=== PATIENT | female | born 1935 | race Caucasian/White ===

== ENCOUNTER 2016-09-20 00:42 | Day surgery (SDC) | payer MEDICARE, OTHER ==
[~2016-09-20] VITALS: Ht 167.6 cm; Wt 75.0 kg
[2016-09-20] VITALS (20 sets, daily range): BP systolic 126–165; BP diastolic 42–97; PULSE 60–88; RESP 10–21; O2SAT 96–100
[~2016-09-20 00:42] MED LIST: ACET-2605 PO; BENA20TA PO; CARV6.252 PO; CEPH250C PO; CHOL200025 PO; CLOP75TA3 PO; DONE10TA42 PO; ESOM20CA28 PO; FERR325C PO; FUR20 PO; INSU100I25 SQ; INSU100V4 SUBQ; INSU200I SQ; KEN25CR EXT; LIP40 PO; SPIR25TA3 PO; WARF5TAB7 PO
[2016-09-20] MEDS ORDERED: fentaNYL-PF 50 mCg/mL 2 mL Inj ONE (00:43)
[2016-09-20] MEDS ORDERED: Succinylcholine Chloride 20 mg/mL 5 mL Inj ONE (00:43)
[2016-09-20] MEDS ORDERED: Propofol 10,000 mCg/mL 20 mL Inj ONE (00:43)
[2016-09-20] MEDS ORDERED: Lactated Ringer's 1,000 ML IV ONE (05:00)
[2016-09-20] MEDS ORDERED: 0.9% Sodium Chloride 1,000 ML ONE (07:44)
[2016-09-20 08:17] LABS: BASOPHILS % (AUTO) 0.4 % (0-3); EOSINOPHILS % (AUTO) 2.9 % (0-5); MONOCYTES % (AUTO) 11.2 % (4-12); Mean Corpuscular Volume 90.3 fL (81-100); NEUTROPHILS % (AUTO) 62.2 % (40-74); Platelet Count 203 bil/L (150-400)
[2016-09-20 08:40] LABS: INR 1.05 ratio
[2016-09-20] MEDS ORDERED: WARF5TAB7 PO (09:09)
--- NOTE | 2016-09-20 09:47 | NUR ---
Admitted through [facility] for an angiogram for ongoing Left great toe pain and difficulty walking more than 500 Ft. Patient has been on Keflex 250mg PO TID and states that the, "leg and toe looks much improved". Serum K+ with this AM lab draw is 5.5 - Dr Mari notified no new orders at this time.
[2016-09-20] MEDS ORDERED: Heparin 1,000 Unit/mL 10 mL Inj ONE (09:55)
[2016-09-20] MEDS ORDERED: Heparin 5,000 Units/500 mL NS Premix IV ONE (09:56)
[2016-09-20] MEDS ORDERED: 0.9% Sodium Chloride 1,000 ML IV SCH (10:05)
[2016-09-20] MEDS ORDERED: Sodium Bicarb 8.4% Inj 150 MEQ in Dextrose 5% 1,000 ML IV ONE (10:10)
--- NOTE | 2016-09-20 10:18 | PCM.HPANE ---
Patient Data Date of Service: Sep 20, 2016 Surgeon Admitting Provider: Attending Provider:Everardo Ojeda MD Primary Care Physician:Summer Cavanaugh MD Other Provider:Smita Metzger Anesthesia Reason for Visit PVD Ht/WT & BMI Height (Feet): 5 Height (Inches): 6.00 Weight (Kilograms): 75.000 Body Mass Index 26.57 Allergies Coded Allergies: Sulfa (Sulfonamide Antibiotics) (Verified Allergy, Severe, 09/20/16) codeine (Verified Allergy, Intermediate, 09/20/16) metformin (Verified Allergy, Intermediate, rash, 09/20/16) Past Anesthesia History Anesthesia History: Denies:: Anesthesia Reactions Diabetes History Hx Diabetes?: Yes MRSA MRSA: No Medications Reported Medications Warfarin Sodium 5 Mg Tablet5 Mg PO DAILY 30 Days Ref 0 09/20/16 Insulin Lispro (Humalog Kwikpen)200 Unit/Ml (3 Ml) Insuln.penUnknown Dose SQ 09/17/16 Cephalexin 250 Mg Tudoegw752 Mg PO TID #30 CAPSULE Ref 0 09/17/16 Benazepril 20 Mg Futltg03 Mg PO DAILY 04/05/16 Cholecalciferol (Vitamin D3) (Vitamin D3)2,000 Unit Tablet4,000 Unit PO DAILY 04/02/16 Ferrous Sulfate (Iron)325 Mg Capsule.er325 Mg PO DAILY 04/02/16 Triamcinolone Acet (Triamcinolone Acetonide Cream)1 Applic/0.25 Gm Cr1 Applic EXT BID PRN For Itching #60 GM Ref 0 12/31/15 Esomeprazole Magnesium (Nexium)20 Mg Capsule.dr20 Mg PO DAILY Ref 0 12/31/15 Clopidogrel Bisulfate (Plavix)75 Mg Ttpcps79 Mg PO DAILY 30 Days Ref 0 12/31/15 Acetaminophen/Diphenhydramine (Tylenol Pm Ex-Strength Caplet)500 Mg-25 Mg Tablet1 Each PO HS PRN For Sleep 12/31/15 Atorvastatin (Lipitor)40 Mg Pfoyzo02 Mg PO DAILY Ref 0 12/31/15 Furosemide 20 Mg Tab20 Mg PO DAILY 30 Days Ref 0 07/03/15 Insulin Detemir (Levemir Flextouch)100 Unit/1 Ml Insuln.pen6 Unit SQ QPM 07/03/15 Spironolactone 25 Mg Fuohbq16 Mg PO DAILY #30 TABLET Ref 0 07/02/15 Insulin Detemir (Levemir U100 Insulin Vial)100 Unit/1 Ml Vial25 SUBQ QAM #1 VIAL Ref 0 07/02/15 Carvedilol 6.25 Mg Tablet6.25 Mg PO BID Ref 0 07/02/15 Discontinued Reported Medications Donepezil 10 Mg Bwntxu65 Mg PO HS Ref 0 09/17/16 Warfarin Sodium 5 Mg Tablet2.5 Mg PO M,W 30 Days Ref 0 04/05/16 Warfarin Sodium 5 Mg Tablet5 Mg PO DAVIS,TU,TH,F,SA 30 Days Ref 0 07/03/15 History History of ENT Problems?: No HEENT History: Positive for:: Cataracts (left eye cataract surgery) Dysphagia (A little) Denies:: Sinus Problem Denture Type: Full- Upper Full- Lower Hx of Heart Problems?: Yes Cardiovascular History: Positive for:: Cardiac Surgery (Pacemaker -for 3 degree HB - Coronary stent - angioplasty Lower leg) Congestive Heart Failure Edema (foot and lower legs - improved since starting antibiotics) Hypertension Irregular Heartbeat (AF) Pacemaker Peripheral Vascular Denies:: Chest Pain (remote HX bronchitis) Heart Murmur Hx of Respiratory Problem?: Yes Respiratory History: Positive for:: Pneumonia (remote HX has had Pneumonia vaccine) Denies:: Asthma COPD Chest Surgery (pacemaker) Dyspnea Emphysema Hemoptysis Tuberculosis Hx Neurologic Problems?: No Neurological History: Positive for:: Dizziness (Dehydration) Denies:: CVA Dementia Headaches Parkinson's Disease Seizures Hx of GI Problems?: Yes Gastrointestinal History: Positive for:: Gastrointestinal Bleeding (Remote history of ulcer with blood loss warrenting transfusions) Heartburn Denies:: Diverticulitis Gastroesphageal Reflux Hepatitis Hiatal Hernia Hx of Problems?: Yes Genitourinary History: Positive for:: Urinary Tract Infection (occasional) Female Hx: Denies:: Currently Hx Musculoskeletal Problems?: Yes Musculoskeletal History: Denies:: Back Injury Joint Replacement Hx of Psycho/Social Problems?: No Hx Surgeries?: Yes ([place] 35 years ago) Hx Any Other Health Problems?: Yes Other History: Positive for:: Hospitalization Denies:: Cancer Endocrine Disease Thyroid Disease History Blood Transfusions: Positive for:: Accept Blood Products? Blood Transfusions Denies:: Blood Transfuse Reaction Hx Diabetes: Yes Hx Alcohol Use: NoHx Substance Use: No Smoking Status: Never Smoker Have You Smoked inLast 12 mo: No Stop/Bang Treated for Sleep Apnea?: No Do You Have a CPAP Machine?: No GUSTAVO Risk Assessment: Low Risk, <3 Yes Risk Assessment Category Category 1A: Patient has history of documented sleep apnea, and HAS NOT received any narcotic, sedative or anesthesia administration during this stay. Category 1B: Patient has history of documented sleep apnea, and HAS received any narcotic , sedative or anesthesia administration during this stay Category 2: Patient has SUSPECTED Obstructive Sleep Apnea, and HAS received any narcotic , sedative or anesthesia administration during this stay. Category 3: Patient has SUSPECTED Obstructive Sleep Apnea and HAS NOT received narcotic, sedative or anesthesia administration during this stay. Category 4: Outpatient in Procedural Areas with known sleep apnea or who screen positive for High Risk via the STOP/BANG questionnaire. Exam Exam Vital Signs Vital Signs Date Time Temp Pulse Resp B/P Pulse Ox O2 Delivery O2 Flow Rate FiO2 09/20/16 08:38 36.6 88 18 165/60 98 Room Air 09/20/16 08:38 88 18 165/60 General Appearance: Alert, Oriented X3, Cooperative HEENT/AIRWAY: MP 2 Lungs: Clear to Auscultation, Diminished Heart: Normal S1, Normal S2 Meds/Labs/Diagnostics Labs Test 09/20/16 08:11 White Blood Count 7.2th/mm3 (3.8-10.1) Red Blood Count 3.83mil/mm3 (3.90-5.20) Hemoglobin 11.1g/dL (12.0-15.6) Hematocrit 34.6% (35.0-46.0) Mean Corpuscular Volume 90.3fL (81-100) Mean Corpuscular Hemoglobin 29.0pg (27.0-35.0) Mean Corpuscular Hemoglobin Concent 32.1% (32.0-37.0) Red Cell Distribution Width 14.0% (12.3-15.4) Platelet Count 203bil/L (150-400) Neutrophils (%) (Auto) 62.2% (40-74) Lymphocytes (%) (Auto) 22.9% (14-46) Monocytes (%) (Auto) 11.2% (4-12) Eosinophils (%) (Auto) 2.9% (0-5) Basophils (%) (Auto) 0.4% (0-3) Prothrombin Time 11.3sec (8.1-12.5) Prothromb Time International Ratio 1.05ratio Sodium Level 136mEq/L (134-144) Potassium Level 5.5mEq/L (3.5-5.2) Chloride Level 100mEq/L (97-108) Carbon Dioxide Level 22mmol/L (18-29) Blood Urea Nitrogen 43mg/dL (8-27) Creatinine 1.79mg/dL (0.57-1.00) Estimat Glomerular Filtration Rate 39mL/min (>59) Glucose Level 241mg/dL (60-99) Calcium Level 8.8mg/dL (8.5-10.1) Plan Impression Patient chart reviewed, patient interviewed and anesthestic plan with risks, benefits, and alternatives discussed, and informed consent obtained. ASA Physical Status: ASA3 Severe Disease Anesthetic Plan: MAC Bene/Risks/Altern/Consents: Yes HP Complete Prior to Induction: Yes Yan Coreas DO Sep 20, 2016 10:18
[2016-09-20] MEDS ORDERED: Nitroglycerin 50,000 mcg/250 mL D5W Premix IV ONE (10:26)
--- NOTE | 2016-09-20 12:24 | PCM.ANEP1 ---
Post Anesthesia Phase 1 PACU Phase 1 Assessment Date of Service: Sep 20, 2016 Vital Signs Vital Signs Date Time Temp Pulse Resp B/P Pulse Ox O2 Delivery O2 Flow Rate FiO2 09/20/16 08:38 36.6 88 18 165/60 98 Room Air 09/20/16 08:38 88 18 165/60 Anesthetic Administered: GA Level of Alertness: Awake, talking BECKER's with Equal Strength: Yes Pain: No Nausea or Vomiting: No Oxygen Delivery: Simple Mask Lungs: Clear to Auscultation, Diminished Dermatome Level: Full Sensation Yan Coreas DO Sep 20, 2016 12:24
--- NOTE | 2016-09-20 18:27 | PCM.ANEP2 ---
Post Anesthesia Evaluation ASA/CMS Post Anesthesia Date of Service: Sep 20, 2016 VS in Patient's Normal Range?: Yes Resp Stable; Airway Patent?: Yes CV Function & Hydration Stable: Yes Mental Status Recovered?: Yes Pain control Satisfactory?: Yes N/V Control Satisfactory?: Yes Yan Coreas DO Sep 20, 2016 18:27
--- NOTE | 2016-09-20 19:01 | NUR ---
KATHRYN DISCHARGE ASSUMED CARE OF PT AT 1715. RIGHT GROIN HAS REMAINED SOFT, NON TENDER, NO BLEEDING OR HEMATOMA NOTED. RIGHT DP/PT PER DOPPLER. PT COMPLETED BEDREST AND THEN AMBULATED TO BR AND IN THE [facility]. RIGHT GROIN REMAINED STABLE. DISCHARGE INSTRUCTIONS INCLUDING MEDICATIONS, F/U, AND LABS WERE REVIEWED WITH PT AND DAUGHTER AND THEY VERBALIZED UNDERSTANDING. PT WAS DISCHARGED AT 1900 WITH DAUGHTER IN STABLE CONDITION.
--- NOTE | 2016-09-20 19:28 | DI96 ---
[address] [address] PERIPHERAL CATHETERIZATION/INTERVENTION REPORT PATIENT: ANA KLEIN : 1935 MR#: [id number] ADMIT: 09/20/2016 JOB ID: [id number] CORRECTED REPORT DATE OF PROCEDURE: 09/20/2016 PATIENT PROFILE: The patient is an 80-year-old lady with history of chronic atrial fibrillation, on chronic anticoagulation. She has had dual-chamber pacemaker implantation in 2012. She has cardiomyopathy with ejection fraction of 30% to 35%. Her risk factor includes uncontrolled diabetes, hypertension, and hyperlipidemia. She has chronic kidney disease, stage 3-4. The patient presented with cellulitis of her left foot. PROCEDURE: 1. Vascular access from the right groin. 2. Pelvic angiogram. 3. Selective contralateral left common femoral angiogram with runoff. 4. Vascular closure device: None. COMPLICATIONS: None. METHOD: The patient was under IV sedation provided by Dr. Seay, an anesthesiologist. Vascular access was obtained from the right groin under 1% lidocaine local anesthesia using a 5-Malaysian sheath. A 4-Malaysian pigtail catheter was advanced to the lower abdominal aorta and pelvic angiogram was performed in the AP view by injecting CO2 at 20 cc. However, the image was suboptimal. A repeat angiogram was performed by injecting contrast at the rate of 12 cc/second for 1.5 seconds. A 5-Malaysian rim catheter was then placed in the abdominal aorta and used to get over the horn. It was then exchanged to a 4-Malaysian slip catheter. The tip of the catheter was placed in the left common femoral artery. Selective contralateral left common femoral angiogram with runoff was performed in the AP view by injecting contrast at the rate of 4 cc/second for 9 seconds. This catheter was withdrawn. Following sheath removal, hemostasis was achieved by manual compression. The patient tolerated the procedure well. She was transferred to [facility] in good condition. TOTAL CONTRAST USED: 50 cc. Total carbon dioxide use is 20 cc. Fluoro time is 2.2 minutes. Total radiation dose is 188 milligray. RESULTS: 1. The abdominal aorta has minor irregularity. 2. The right common iliac artery has minor irregularity of 10% to 20% stenosis. The left common iliac artery has eccentric 40% stenosis in the mid portion. 3. Bilateral external iliac arteries have minimal disease. Bilateral internal iliac arteries have minor disease. 4. The left common femoral artery has eccentric 30% to 40% stenosis in the distal portion. 5. The left superficial femoral artery has diffuse disease of 20% to 30% stenosis before it becomes totally occluded in the distal portion. There are faint collaterals filling into the above knee popliteal. This above knee popliteal has critical 99% stenosis. The left profunda artery has diffuse minor disease. 6. The left tibioperoneal trunk has diffuse moderate disease. The left anterior tibial artery has 90% stenosis at its origin and 99% stenosis in the mid portion. The left peroneal artery is occluded proximally. The left posterior tibial artery has diffuse minor disease. CONCLUSION: 1. Occluded distal left superficial femoral artery. 2. Critical 99% stenosis of the left above-knee popliteal artery. 3. Critical 99% stenosis of the left anterior tibial artery and occluded left peroneal artery. Corrected by LORENA 11/18/2016 at 8:16am DOS. MAX
== END 2016-09-20 23:59 | disposition home or self-care (01) ==
LOC: SOUO 00:42
PROVIDERS: ATTEND Internal Medicine Interventional Cardiology
DX: I70.202 Unspecified atherosclerosis of native arteries of extremities, left leg (principal); I70.92 Chronic total occlusion of artery of the extremities; I70.8 Atherosclerosis of other arteries; L03.116 Cellulitis of left lower limb; E11.65 Type 2 diabetes mellitus with hyperglycemia; E11.22 Type 2 diabetes mellitus with diabetic chronic kidney disease; I48.2 Chronic atrial fibrillation; I12.9 Hypertensive chronic kidney disease with stage 1 through stage 4 chronic kidney disease, or unspecified chronic kidney disease; N18.4 Chronic kidney disease, stage 4 (severe); I25.10 Atherosclerotic heart disease of native coronary artery without angina pectoris; Z95.5 Presence of coronary angioplasty implant and graft; I42.9 Cardiomyopathy, unspecified; I34.0 Nonrheumatic mitral (valve) insufficiency; E78.5 Hyperlipidemia, unspecified; Z79.4 Long term (current) use of insulin; Z79.01 Long term (current) use of anticoagulants; Z95.0 Presence of cardiac pacemaker
CPT/HCPCS: 36246; 36415; 75710; 75774; 80048; 85025; 85610; 93005; C1769; J0330; J1644; J2250; J3010; Q9967

== ENCOUNTER 2016-10-04 00:07 | Day surgery (SDC) | payer MEDICARE, OTHER ==
[~2016-10-04] VITALS: Ht 167.6 cm; Wt 77.0 kg
[2016-10-04] VITALS (17 sets, daily range): BP systolic 127–171; BP diastolic 48–72; PULSE 65–86; RESP 12–25; O2SAT 92–100
[~2016-10-04 00:07] MED LIST changes: -DONE10TA42 PO; -KEN25CR EXT
[2016-10-04] MEDS ORDERED: fentaNYL-PF 50 mCg/mL 2 mL Inj ONE (00:08)
[2016-10-04] MEDS ORDERED: Propofol 10,000 mCg/mL 20 mL Inj ONE (00:08)
[2016-10-04] MEDS ORDERED: Ondansetron 2 mg/mL 2 mL Inj ONE (00:08)
[2016-10-04] MEDS ORDERED: Lactated Ringer's 1,000 ML IV ONE (05:00)
[2016-10-04] MEDS ORDERED: Sodium Bicarb 8.4% Inj 150 MEQ in Dextrose 5% 1,000 ML IV ONE ×2 (06:29→07:40)
--- NOTE | 2016-10-04 06:45 | NUR ---
ADMISSION NOTE FEMALE PT ADMITTED FOR PERIPHERAL ANGIOPLASTY. DISCUSSED PLAN OF CARE WITH PT AND FAMILY. SEE ADMIT AND FLOW SHEET
[2016-10-04 07:15] LABS: BASOPHILS % (AUTO) 0.3 % (0-3); EOSINOPHILS % (AUTO) 3.2 % (0-5); MONOCYTES % (AUTO) 11.7 % (4-12); Mean Corpuscular Hemoglobin 28.9 pg (27.0-35.0); Mean Corpuscular Volume 90.7 fL (81-100); NEUTROPHILS % (AUTO) 63.6 % (40-74); Platelet Count 217 bil/L (150-400)
[2016-10-04] MEDS ORDERED: 0.9% Sodium Chloride 1,000 ML ONE ×2 (07:32→08:02)
[2016-10-04] MEDS ORDERED: Heparin 1,000 Unit/mL 10 mL Inj ONE ×3 (08:02→10:33)
--- NOTE | 2016-10-04 08:30 | PCM.HPANE ---
Patient Data Surgeon Admitting Provider: Attending Provider:Everardo Ojeda MD Primary Care Physician:Summer Cavanaugh MD Other Provider:Smita Metzger Anesthesia Reason for Visit Peripheral Vascular Disease, Unspecified Ht/WT & BMI Height (Feet): 5 Height (Inches): 6.00 Weight (Kilograms): 77.000 Body Mass Index 27.28 Allergies Coded Allergies: Sulfa (Sulfonamide Antibiotics) (Verified Allergy, Severe, 10/04/16) codeine (Verified Allergy, Intermediate, 10/04/16) metformin (Verified Allergy, Intermediate, rash, 10/04/16) Past Anesthesia History Anesthesia History: Denies:: Anesthesia Reactions Diabetes History Hx Diabetes?: Yes Current Bedside Blood Glucose: 145 MRSA MRSA: No Medications Reported Medications Warfarin Sodium 5 Mg Tablet5 Mg PO DAILY 30 Days Ref 0 09/20/16 Insulin Lispro (Humalog Kwikpen)200 Unit/Ml (3 Ml) Insuln.penUnknown Dose SQ 09/17/16 Cholecalciferol (Vitamin D3) (Vitamin D3)2,000 Unit Tablet4,000 Unit PO DAILY 04/02/16 Ferrous Sulfate (Iron)325 Mg Capsule.er325 Mg PO DAILY 04/02/16 Esomeprazole Magnesium (Nexium)20 Mg Capsule.dr20 Mg PO DAILY Ref 0 12/31/15 Clopidogrel Bisulfate (Plavix)75 Mg Duzmrt45 Mg PO DAILY 30 Days Ref 0 12/31/15 Acetaminophen/Diphenhydramine (Tylenol Pm Ex-Strength Caplet)500 Mg-25 Mg Tablet1 Each PO HS PRN For Sleep 12/31/15 Atorvastatin (Lipitor)40 Mg Vouali31 Mg PO DAILY Ref 0 12/31/15 Furosemide 20 Mg Tab20 Mg PO DAILY 30 Days Ref 0 07/03/15 Insulin Detemir (Levemir Flextouch)100 Unit/1 Ml Insuln.pen6 Unit SQ QPM 07/03/15 Insulin Detemir (Levemir U100 Insulin Vial)100 Unit/1 Ml Vial15 SUBQ QAM #1 VIAL Ref 0 07/02/15 Carvedilol 6.25 Mg Tablet6.25 Mg PO BID Ref 0 07/02/15 Discontinued Reported Medications Triamcinolone Acet (Triamcinolone Acetonide Cream)1 Applic/0.25 Gm Cr1 Applic EXT BID PRN For Itching #60 GM Ref 0 12/31/15 History History of ENT Problems?: Yes HEENT History: Positive for:: Cataracts (left eye cataract surgery) Dysphagia (A little) Denies:: Glaucoma Sinus Problem Denture Type: Full- Upper Full- Lower Hx of Heart Problems?: Yes Cardiovascular History: Positive for:: Cardiac Surgery (Pacemaker -for 3 degree HB - Coronary stent - angioplasty Lower leg) Congestive Heart Failure Edema (foot and lower legs - improved since starting antibiotics) Hypertension Irregular Heartbeat (AF) Pacemaker Peripheral Vascular Denies:: Chest Pain (remote HX bronchitis) Heart Murmur Other History/Comments History of CAD, with Stent in place; 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, able to walk 100 meters without stopping, ROS currently negative, + left leg ischemia, here today for stenting Hx of Respiratory Problem?: Yes Respiratory History: Positive for:: Pneumonia (remote HX has had Pneumonia vaccine) Denies:: Asthma COPD Chest Surgery (pacemaker) Dyspnea Emphysema Hemoptysis Tuberculosis Hx Neurologic Problems?: No Neurological History: Positive for:: Dizziness (Dehydration) Denies:: CVA Dementia Headaches Parkinson's Disease Seizures Hx of GI Problems?: Yes Gastrointestinal History: Positive for:: Gastrointestinal Bleeding (Remote history of ulcer with blood loss warrenting transfusions) Heartburn Denies:: Diverticulitis Gastroesphageal Reflux Hepatitis Hiatal Hernia Other History/Comment Denies Reflux.. peptic ulcer on coumadin Hx of Problems?: Yes Genitourinary History: Positive for:: Urinary Tract Infection (occasional) Female Hx: Denies:: Currently Hx Musculoskeletal Problems?: Yes Musculoskeletal History: Denies:: Back Injury Joint Replacement Hx of Psycho/Social Problems?: No Hx Surgeries?: Yes ([place] 35 years ago) Hx Any Other Health Problems?: Yes Other History: Positive for:: Hospitalization Denies:: Cancer Endocrine Disease Thyroid Disease History Blood Transfusions: Positive for:: Accept Blood Products? Blood Transfusions Denies:: Blood Transfuse Reaction Hx Diabetes: YesBedside Blood Glucose: 145 Hx Alcohol Use: NoHx Substance Use: No Smoking Status: Never Smoker Have You Smoked inLast 12 mo: No Stop/Bang Treated for Sleep Apnea?: No Do You Have a CPAP Machine?: No Risk Assessment Category Category 1A: Patient has history of documented sleep apnea, and HAS NOT received any narcotic, sedative or anesthesia administration during this stay. Category 1B: Patient has history of documented sleep apnea, and HAS received any narcotic , sedative or anesthesia administration during this stay Category 2: Patient has SUSPECTED Obstructive Sleep Apnea, and HAS received any narcotic , sedative or anesthesia administration during this stay. Category 3: Patient has SUSPECTED Obstructive Sleep Apnea and HAS NOT received narcotic, sedative or anesthesia administration during this stay. Category 4: Outpatient in Procedural Areas with known sleep apnea or who screen positive for High Risk via the STOP/BANG questionnaire. Exam Exam Vital Signs Vital Signs Date Time Temp Pulse Resp B/P Pulse Ox O2 Delivery O2 Flow Rate FiO2 10/04/16 06:45 36.7 84 16 171/72 98 Room Air General Appearance: Alert, Oriented X3, Cooperative HEENT/AIRWAY: MP 2 Lungs: Clear to Auscultation, Clear to Percussion Meds/Labs/Diagnostics Admission Meds Current Medications Sodium Chloride 1,000 ml @ ud STK-MED ONCE .ROUTE Last administered on 08:06; Start 10/04/16 at 07:32; Stop 10/04/16 at 07:33; Status DC Sodium Bicarbonate/ Dextrose/Water (Sodium Bicarb 8.4% Inj/D5W) 1,150 ml @ 0 mls/hr Q0M ONCE IV Last administered on 10/04/16 08:06; Start 10/04/16 at 07: 40; Stop 10/04/16 at 07:41; Status DC Bedside Blood Glucose: 145 Labs Test 10/04/16 07:00 White Blood Count 6.9th/mm3 (3.8-10.1) Red Blood Count 3.98mil/mm3 (3.90-5.20) Hemoglobin 11.5g/dL (12.0-15.6) Hematocrit 36.1% (35.0-46.0) Mean Corpuscular Volume 90.7fL (81-100) Mean Corpuscular Hemoglobin 28.9pg (27.0-35.0) Mean Corpuscular Hemoglobin Concent 31.9% (32.0-37.0) Red Cell Distribution Width 14.1% (12.3-15.4) Platelet Count 217bil/L (150-400) Neutrophils (%) (Auto) 63.6% (40-74) Lymphocytes (%) (Auto) 20.8% (14-46) Monocytes (%) (Auto) 11.7% (4-12) Eosinophils (%) (Auto) 3.2% (0-5) Basophils (%) (Auto) 0.3% (0-3) Sodium Level 140mEq/L (134-144) Potassium Level 4.2mEq/L (3.5-5.2) Chloride Level 100mEq/L (97-108) Carbon Dioxide Level 26mmol/L (18-29) Blood Urea Nitrogen 29mg/dL (8-27) Creatinine 1.42mg/dL (0.57-1.00) Estimat Glomerular Filtration Rate 51mL/min (>59) Glucose Level 153mg/dL (60-99) Calcium Level 8.7mg/dL (8.5-10.1) Plan Impression Patient chart reviewed, patient interviewed and anesthestic plan with risks, benefits, and alternatives discussed, and informed consent obtained. ASA Physical Status: ASA3 Plus Emergency Anesthetic Plan: GA Bene/Risks/Altern/Consents: Yes HP Complete Prior to Induction: Yes Perry Uribe MD Oct 04, 2016 08:29
[2016-10-04] MEDS ORDERED: Protamine Sulfate 10 mg/mL 5 mL Inj ONE (11:23)
--- NOTE | 2016-10-04 11:50 | NUR ---
post procedure note Returned from lab manager. See flow sheet.
[2016-10-04] MEDS ORDERED: Lactated Ringer's 500 ML IV PRN (11:58)
[2016-10-04] MEDS ORDERED: Lactated Ringer's 1,000 ML IV SCH (11:58)
--- NOTE | 2016-10-04 11:59 | PCM.ANEP1 ---
Post Anesthesia Phase 1 PACU Phase 1 Assessment Vital Signs Vital Signs Date Time Temp Pulse Resp B/P Pulse Ox O2 Delivery O2 Flow Rate FiO2 10/04/16 06:45 36.7 84 16 171/72 98 Room Air Anesthetic Administered: GA Level of Alertness: Sleepy, easy to arouse Pain: No Oxygen Delivery: Nasal Cannula Lungs: Clear to Auscultation, Clear to Percussion Dermatome Level: Full Sensation Perry Uribe MD Oct 04, 2016 11:59
[2016-10-04] MEDS ORDERED: EPHEDrine Sulfate 50 mg/mL Inj IVPUSH PRN (12:00)
[2016-10-04] MEDS ORDERED: HYDROmorphone 1 mg/mL Inj IVPUSH PRN (12:00)
[2016-10-04] MEDS ORDERED: Ondansetron 2 mg/mL 2 mL Inj IVPUSH PRN ×3 (12:00→16:00)
[2016-10-04] MEDS ORDERED: fentaNYL-PF 50 mCg/mL 2 mL Inj IVPUSH PRN (12:00)
[2016-10-04] MEDS ORDERED: Phenylephrine 10,000 mCg/mL Inj IVPUSH PRN (12:00)
[2016-10-04] MEDS ORDERED: Dexamethasone 4 mg/mL Inj IVPUSH PRN (12:00)
[2016-10-04] MEDS ORDERED: MetoCLOpramide 5 mg/mL 2 mL Inj IVPUSH PRN (12:00)
[2016-10-04] MEDS ORDERED: Heparin 5,000 Units/500 mL NS Premix IV ONE (12:40)
[2016-10-04] MEDS ORDERED: 0.9% Sodium Chloride 250 ML IV PRN (13:09)
[2016-10-04] MEDS ORDERED: Sodium Bicarb 8.4% Inj 150 MEQ in Dextrose 5% 1,000 ML IV SCH (13:09)
[2016-10-04] MEDS ORDERED: 0.9% Sodium Chloride 1,000 ML IV PRN (13:09)
[2016-10-04] MEDS ORDERED: Atropine 1 mg/10 mL (Code) Syringe IVPUSH PRN ×2 (13:10→16:00)
--- NOTE | 2016-10-04 13:24 | PCM.ANEP2 ---
Post Anesthesia Evaluation ASA/CMS Post Anesthesia VS in Patient's Normal Range?: Yes Resp Stable; Airway Patent?: Yes CV Function & Hydration Stable: Yes Mental Status Recovered?: Yes Pain control Satisfactory?: Yes N/V Control Satisfactory?: Yes Perry Uribe MD Oct 04, 2016 13:24
[2016-10-04] MEDS ORDERED: Insulin Human REGular-Omnicell 100 Unit/mL ONE (14:35)
--- NOTE | 2016-10-04 15:04 | NUR ---
TRANSFER NOTE TO [facility], REPORT GIVEN
[2016-10-04] MEDS ORDERED: Insulin Human REGular-Omnicell 100 Unit/mL SUBQ ONE (15:35)
[2016-10-04] MEDS ORDERED: 0.9% Sodium Chloride 400 ML (4 HRS) IV ONE (16:00)
[2016-10-04] MEDS ORDERED: 0.9% Sodium Chloride 250 ML BOLUS IV PRN (16:00)
[2016-10-04] MEDS ORDERED: Sodium Chloride LOK Flush 10 mL Syringe IVFLUSH PRN (16:00)
[2016-10-04] MEDS ORDERED: D5 IV SCH (16:00)
[2016-10-04] MEDS ORDERED: SODIUM BICARB IV SCH (16:00)
--- NOTE | 2016-10-04 20:02 | DI96 ---
[address] [address] PERIPHERAL CATHETERIZATION/INTERVENTION REPORT PATIENT: ANA KLEIN : 1935 MR#: [id number] ADMIT: 10/04/2016 JOB ID: [id number] DATE: 10/04/2016 PATIENT PROFILE: The patient is an 80-year-old woman with chronic atrial fibrillation. She presented with cellulitis of the left foot last month. She was found to have significant peripheral artery disease. PROCEDURE: 1. Arterial access from the left groin by antegrade approach under ultrasound guidance. 2. Selective ipsilateral left superficial femoral angiogram with runoff. 3. Drug-coated balloon angioplasty to the distal left superficial femoral artery. 4. Drug-coated balloon angioplasty to the left popliteal artery. 5. Balloon angioplasty and stent to the mid left anterior tibial artery. 6. Vascular closure device: StarClose. COMPLICATIONS: None. DESCRIPTION OF PROCEDURE: The patient was under anesthesia provided by Dr.David Uribe, anesthesiologist. Arterial access was obtained from the left groin under 1% lidocaine local anesthesia using micropuncture needle under ultrasound guidance. After the position was confirmed in the left superficial femoral artery, the femoral sheath was exchanged to a 25 cm Brite tip sheath. The tip of the sheath is in the mid left superficial femoral artery. Selective left superficial femoral angiogram with runoff was performed in the AP view. Repeated doses of heparin were given in order to maintain ACT above 250. A Run-through wire was used to cross the subtotal occlusion of the distal left superficial femoral artery and left popliteal artery. Both lesions were predilated with a 2.0 x 60 mm and a 4.0 x 60 mm balloons. The angioplasty wire was then exchanged to an SV 5 wire. An Impact Admiral 4 x 80 mm balloon was then used to dilate in the left popliteal artery. It was inflated up to 8 atmospheres for 3 minutes. Another Impact Admiral 4 x 80 mm balloon was dilated in the distal left superficial femoral artery. It was inflated up to 8 atmospheres for 3 minutes. The angiogram at this point demonstrated a subtotal occlusion of the mid left anterior tibial artery. The Run-through wire was used to cross this lesion. The lesion was predilated with a 2.5 x 20 mm balloon. A Xience 3.0 x 23 mm stent was placed inside the mid left anterior tibial artery lesion and deployed at 10 atmospheres for 30 seconds. Final angiogram was obtained. Left femoral angiogram was performed before sheath removal. Hemostasis was achieved by using a StarClose device. The patient tolerated the procedure well. She was transferred to the [facility] in good condition. TOTAL CONTRAST USED: 100 cc. FLUORO TIME: 11.1 minutes. RESULTS: 1. Successful drug-coated balloon angioplasty to the subtotal occlusion of the distal left superficial femoral artery to achieve a good angiographic result. 2. Successful drug-coated balloon angioplasty to the subtotal occlusion of the left popliteal artery to achieve a good angiographic result. 3. Successful balloon angioplasty and stent placement to the subtotal occlusion of the left anterior tibial artery to achieve an excellent angiographic result. WINTER
[2016-10-04] MEDS: Insulin REGULAR SS Med-Dose SUBQ PRN (20:07)
[2016-10-04] MEDS ORDERED: diphenhydrAMINE 25 mg Capsule PO PRN (20:30)
[2016-10-04] MEDS ORDERED: Insulin GLARgine 100 Unit/mL Syringe SUBQ SCH (21:00)
[2016-10-05 03:09] VITALS: BP 134/42; PULSE 73; RESP 19; O2SAT 96
[2016-10-05 04:06] LABS: Mean Corpuscular Hemoglobin 28.5 pg (27.0-35.0); Mean Corpuscular Volume 91.5 fL (81-100)
[2016-10-05] MEDS ORDERED: Pantoprazole 40 mg ER24 Tablet PO SCH (06:30)
[2016-10-05] MEDS ORDERED: Insulin GLARgine 100 Unit/mL Syringe SUBQ SCH (08:30)
[2016-10-05 08:54] VITALS: BP 132/49; PULSE 88; RESP 16; O2SAT 96
[2016-10-05] MEDS: Insulin REGULAR SS Med-Dose SUBQ PRN (09:13)
[2016-10-05 11:14] VITALS: PULSE 78
[2016-10-05 11:54] VITALS: BP 136/42; PULSE 73; RESP 18; O2SAT 97
--- NOTE | 2016-10-05 12:24 | DIS ---
[address] [address] DISCHARGE SUMMARY PATIENT: ANA KLEIN : 1935 MR#: [id number] ADMIT: 10/04/2016 JOB ID: [id number] DIS: 10/05/2016 CORRECTED REPORT: ADMITTING DIAGNOSIS: Peripheral artery disease with rest pain. DISCHARGE DIAGNOSIS: Peripheral artery disease with rest pain. SECONDARY DIAGNOSES: 1. Recent cellulitis of the left foot. 2. Coronary artery disease. 3. Status post drug-eluting stent placement to the major obtuse marginal branch on July 03, 2015. 4. Ischemic cardiomyopathy with ejection fraction 30% to 35%. 5. Moderate to severe mitral regurgitation. 6. Chronic atrial fibrillation, on chronic anticoagulation. 7. 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 8. Hypertension. 9. Uncontrolled diabetes with long-term use of insulin. 10. Hyperlipidemia with LDL goal less than 70 mg/dL. 11. Chronic kidney disease, improved. PROCEDURE: 1. Drug-coated balloon angioplasty to the distal left superficial femoral artery. 2. Drug-coated balloon angioplasty to the left popliteal artery. 3. Balloon angioplasty and stent to the mid left anterior tibial artery. COMPLICATIONS: None. HISTORY: The patient came to see me last month after having pain in her left foot and cellulitis. She was found to have significant peripheral artery disease. She underwent successful drug-coated balloon angioplasty to the subtotal occlusion of the distal left superficial femoral artery and left popliteal artery, and drug-eluting stent placement to the subtotal occlusion of the mid left anterior tibial artery on October 04, 2016. She was given intravenous bicarb before the procedure. Her baseline creatinine was 1.83 on April 05, 2016, and 1.79 on September 20, 2016. After the procedure her creatinine went down to 1.24 on October 05, 2016. The patient was discharged from the hospital on the following day in good condition. Her discharge medications remain the same with the exception of she should take aspirin 81 mg once daily for one month. Furosemide was discontinued. I will add gabapentin 300mg daily for her intermittent foot pain at rest. Corrected by LORENA 11/11/16 at 8:10am DOS. WINTER
--- NOTE | 2016-10-05 12:52 | NUR ---
Discharge Patient A7O x3. VSS. Denies pain/discomfort. Bilateral pedal pulses not palpable but heard with doppler. Groin site soft non-tender, no redness or signs of bruising. Discharge instructions reviewed with patient and her daughter and copy given to patient. Patient education on warfarin done. Patient ambulated off unit with all personal belongings and transported home via personal vehicle.
== END 2016-10-05 12:45 | disposition home or self-care (01) ==
LOC: SOUO 00:07 → PCC 15:09 → SOUO 10-05 12:45
PROVIDERS: ATTEND Internal Medicine Interventional Cardiology
DX: I70.222 Atherosclerosis of native arteries of extremities with rest pain, left leg (principal); I25.10 Atherosclerotic heart disease of native coronary artery without angina pectoris; I48.2 Chronic atrial fibrillation; I25.5 Ischemic cardiomyopathy; I34.0 Nonrheumatic mitral (valve) insufficiency; I12.9 Hypertensive chronic kidney disease with stage 1 through stage 4 chronic kidney disease, or unspecified chronic kidney disease; E11.22 Type 2 diabetes mellitus with diabetic chronic kidney disease; E11.65 Type 2 diabetes mellitus with hyperglycemia; N18.4 Chronic kidney disease, stage 4 (severe); I44.2 Atrioventricular block, complete; Z95.0 Presence of cardiac pacemaker; Z79.01 Long term (current) use of anticoagulants; Z79.4 Long term (current) use of insulin; E78.5 Hyperlipidemia, unspecified; Z79.02 Long term (current) use of antithrombotics/antiplatelets; Z95.5 Presence of coronary angioplasty implant and graft
CPT/HCPCS: 36415; 37224; 37230; 75710; 80048; 85025; 85027; 93005; 96374; 96376; 99152; 99153; C1725; C1760; C1769; C1874; C1887; C2623; J1644; J1815; J2250; J2405; J2720; J3010; J7030; J7070; J7120; Q9967